=== PATIENT | male | born 1965 | race African-American/Black ===

== ENCOUNTER 2018-09-18 19:15 | Emergency (ER) | payer OTHER ==
[~2018-09-18 19:15] MED LIST: ISOVUE-370 76%-LOCM 1 ML ONE
[2018-09-18] MEDS ORDERED: Ondansetron HCl/PF 4 MG/2 ML Vial ONE (20:49)
[2018-09-18 20:55] LABS: Hemoglobin 4.6 g/dL (14.0-18.0)
[2018-09-18 21:07] LABS: Band 6 % (5-11); Hypochromia SLIGHT = 6-15 cells (100X) (0-5/hpf); Lymphocytes 6 % (21-51); MDiff Complete? YES; Mean Corpuscular Volume 82.8 fL (78.0-98.0); Mean Platelet Volume 9.6 fL (7.4-10.4); Monocytes 10 % (0-10); Neutrophil 78 % (42-75); PLT Morphology Comment Appears Increased; Platelet Count 480 thou/uL (130-400); RBC Distribution Width 22.6 % (11.5-14.5); Red Blood Cell (RBC) Count 1.93 mill/uL (4.70-6.10); Reflex for Review?? YES; Target Cells MODERATE= 6-15 cells (100X) (0-1/hpf); White Blood Cell (WBC) Count 27.4 thou/uL (4.8-10.8)
[2018-09-18 21:11] LABS: ALT (SGPT) 30 U/L (8-55); AST (SGOT) 62 U/L (5-34); Albumin 2.1 g/dL (3.5-5.0); Alkaline Phosphatase 773 U/L (40-150); Anion Gap 18 mmol/L (10-20); Bilirubin, Total 2.2 mg/dL (0.2-1.2); Calc. Creatinine Clearance 0 mL/min (70-130); Calcium 9.7 mg/dL (7.8-10.44); Carbon Dioxide 23 mmol/L (22-29); Chloride 97 mmol/L (98-107); Estimated GFR-MDRD 19; Globulin 6.4 g/dL (2.4-3.5); Glucose 102 mg/dL (70-105); Potassium 4.6 mmol/L (3.5-5.1); Protein, Total 8.5 g/dL (6.0-8.3); Sodium 133 mmol/L (136-145)
[2018-09-18 21:22] LABS: BUN (Urea Nitrogen) 118 mg/dL (8.4-25.7)
[2018-09-18 21:23] LABS: INR-International Normal Ratio 1.3; Prothrombin Time 16.5 SEC (12.0-14.7)
[2018-09-18 21:43] LABS: Bilirubin Small (Negative); Blood, Urine Negative (Negative); Clarity CLEAR (Clear); Glucose, Urine (Dipstick) Negative (Negative); Leukocyte Trace (Negative); Nitrite Negative (Negative); Protein, Urine (Dipstick) 30 mg/dL (Neg-Trace); Specific Gravity, Urine 1.016 (1.002-1.036)
[2018-09-18 21:45] LABS: Bacteria/HPF None Seen HPF (None Seen); Hyaline Casts/LPF 7-10 HYALINE CAST LPF (0-3 Hyaline); Pathc Cast-AUWi Flag 2.18 (0-2.49); RBC/HPF 0-3 HPF (0-3); Squamous Epithelial 0-3 HPF (0-3); WBC/HPF 0-3 HPF (0-3)
[2018-09-18] MEDS ORDERED: Pantoprazole 40 MG VIAL IVP SCH (22:00)
[2018-09-18] MEDS ORDERED: Pantoprazole 80 MG, Admixture Fee 1 EACH in Sodium Chloride 0.9% 100 ML IVP SCH (22:00)
--- NOTE | 2018-09-18 22:04 | CT ---
CT ABDOMEN AND PELVIS WITH IV CONTRAST: 09/18/2018 HISTORY: Diffuse abdominal pain. The patient states she has stomach cancer. COMPARISON: None available. FINDINGS: There is an approximately 3 mm pulmonary nodule seen at the right anterolateral lung base. The lung bases are otherwise clear. There are enumerable hypodense and heterogeneous masses seen throughout each lobe of the liver, with diffuse involvement of the liver. The largest mass is difficult to evaluate due to the conglomeratio n of masses within the liver. The largest area of heterogeneity measures approximately 7 cm, in the right hepatic lobe, although this is probably related to coalescence of multiple hepatic masses. The spleen, pancreas, bilateral adrenal glands, kidneys, abdominal aorta, and urinary bladder demonst rate a normal CT appearance. There is thickening involving the gabriel of the body of the stomach, which may be related to the patie nt's known gastric cancer. However, this would be better evaluated with direct visualization. The liver is enlarged. The liver measures 23 cm in craniocaudal dimension. There are a few prominent lymph nodes seen in the region of the gastrohepatic ligament. The right portal vein is small in size and is not well visualized, likely related to multiple hepatic metastatic lesions. There is a moderately large amount of intraperitoneal free fluid present. There is generalized subcutaneous edema, suggesting anasarca. No lytic or sclerotic osseous lesions are appreciated, although there is a lytic lesion within the in tertrochanteric region, right hip, with sclerotic margins, which has an overall nonaggressive appeara nce and may represent a bone island. IMPRESSION: 1. Enumerable hepatic metastatic lesions with hepatomegaly. 2. Moderate amount of ascites. 3. Thickening in the region of the body of the stomach, which may represent the patient's known britt jose raul neoplasm. 4. Mildly prominent lymph nodes in the region of the gastrohepatic ligament. 5. The above findings were discussed with Dr. Moya on 09/18/2018 at 2113 hours. CODE CR POS: ELYSE
== END 2018-09-19 02:05 | disposition short-term general hospital (02) ==
LOC: EEVIPCON 19:15 → ERS 19:15
DX: K92.2 Gastrointestinal hemorrhage, unspecified (principal); D64.9 Anemia, unspecified; C16.9 Malignant neoplasm of stomach, unspecified; C78.7 Secondary malignant neoplasm of liver and intrahepatic bile duct; J45.909 Unspecified asthma, uncomplicated; I10 Essential (primary) hypertension; Z79.899 Other long term (current) drug therapy
CPT/HCPCS: 36430; 74177; 80053; 81003; 81015; 82274; 85025; 85060; 85610; 86850; 86900; 86901; 93005; 96361; 96365; 96366; 96374; C9113; J2405; J7050; P9016